=== PATIENT | female | born 1975 | race Caucasian/White ===

== ENCOUNTER 2017-02-27 13:01 | Emergency (ER) | payer MEDICAID ==
[~2017-02-27] VITALS: Ht 165.1 cm; Wt 114.8 kg
[2017-02-27 15:55] VITALS: BP 180/105; Ht 165.1 cm; Wt 114.8 kg
== END 2017-02-27 18:51 | disposition home or self-care (01) ==
LOC: ED 13:01
DX: M79.644 Pain in right finger(s) (principal); I10 Essential (primary) hypertension